=== PATIENT | female | born 1940 | race Caucasian/White ===

== ENCOUNTER 2016-12-17 11:06 | Inpatient (IN) | payer OTHER ==
[~2016-12-17] VITALS: Ht 170.2 cm; Wt 74.4 kg
--- NOTE | 2016-12-17 11:21 | NUR ---
MISA KATZ AT BEDSIDE FOR EVAL.
--- NOTE | 2016-12-17 11:21 | NUR ---
BIBA FROM WALK-IN CLINIC WITH C/O LOW 02 SATS. PT WITH COPD, ACTIVE SMOKER, RECENT COUGH/FEVER 100.3 AT HOME WITH +SICK CONTACTS (FLU/PNA). AT WALK-IN CLINIC AND ON ARRIVAL AT ER SATS 82-85 RA, MID 90S ON 3L, PT SPEAKING FULL SENTENCES BUT INSP/EXP WHEEZES--1 ALBUTEROL NEB AT WALK-IN AND 1 EN ROUTE.
--- NOTE | 2016-12-17 11:39 | ED INFLUENZA/URI COMPLAINT ---
History of Present Illness General Chief Complaint: Dyspnea (COPD, CHF, Other) Stated Complaint: BIBA FROM WALK-IN COPD/SOB/PNA ON CXR Source: patient, family, old records Exam Limitations: no limitations Vital Signs & Intake/Output Vital Signs & Intake/Output Vital Signs Date Time Temp Pulse Resp B/P Pulse O2 O2 Flow FiO2 Ox Delivery Rate 12/17 1809 97.3 90 18 132/60 93 Nasal 2.5L Cannula 12/17 1639 96 Nasal 2.5L Cannula 12/17 1304 99.8 89 18 120/56 96 Nasal 2.5L Cannula 12/17 1247 94 Nasal 2.5L Cannula 12/17 1211 96 Nasal 3.0L Cannula 12/17 1119 20 95 Nasal 3.0L Cannula 12/17 1118 98.3 91 20 134/62 82 Room Air Allergies Coded Allergies: No Known Allergies (12/17/16) Reconcile Medications No Known Home Medications Triage Note: BIBA FROM WALK-IN CLINIC WITH C/O LOW 02 SATS. PT WITH COPD, ACTIVE SMOKER, RECENT COUGH/FEVER 100.3 AT HOME WITH +SICK CONTACTS (FLU/PNA). AT WALK-IN CLINIC AND ON ARRIVAL AT ER SATS 82-85 RA, MID 90S ON 3L, PT SPEAKING FULL SENTENCES BUT INSP/EXP WHEEZES--1 ALBUTEROL NEB AT WALK-IN AND 1 EN ROUTE. Triage Nurses Notes Reviewed? yes HPI: 76-year-old female with COPD, positive smoker, non-O2 dependent, sent in the walk-in center, diagnosed with pneumonia there, had O2 sat of 88%. Over last 2 days she has had fever of 100.3 intermittently, cough, malaise. She denies any worsening shortness of breath but does complain of weakness and fatigue. 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 Upon arrival here her O2 sat was 88%, she received a nebulizer treatment at the urgent care and a chest x-ray, she also received a nebulized treatment of albuterol en route by EMS. She presents here without any complaints of feeling short of breath. She denies any chest pain or palpitations. I have reviewed the chest x-ray from the urgent care center which shows a possible left lower lobe pneumonia (STERLING BYNUM,BRUNO) Past History Medical History Any Pertinent Medical History? see below for history Respiratory: COPD, emphysema Surgical History Surgical History: non-contributory Psychosocial History What is your primary language Kiswahili Tobacco Use: Current Daily Use ETOH Use: occasional use Family History Hx Contributory? No (BRUNO SWANN) Review of Systems Review of Systems Constitutional: Reports: see HPI. EENTM: Reports: no symptoms. Respiratory: Reports: see HPI. Cardiovascular: Reports: no symptoms. GI: Reports: no symptoms. Genitourinary: Reports: no symptoms. Musculoskeletal: Reports: no symptoms. Skin: Reports: no symptoms. Neurological/Psychological: Reports: no symptoms. Hematologic/Endocrine: Reports: no symptoms. Immunologic/Allergic: Reports: no symptoms. All Other Systems: Reviewed and Negative (BRUNO SWANN) Physical Exam Physical Exam Ears, Nose, Throat: normal ENT inspection, moist mucous membrane, hearing grossly normal, Tympanic normal, pharynx normal, DRY MM Comments: Well-developed well-nourished person in no acute distress HEENT: Normal EENT exam, extraocular motion intact, no nystagmus. Pupils equally round and reactive to light. Nose is atraumatic. External auditory canal and Tympanic membranes clear. Pharynx normal. No swelling or edema. Neck: Supple, no lymphadenopathy, normal range of motion without pain or tenderness Back: Nontender, no CVA tenderness. Full range of motion Cardiovascular: Regular rate and rhythms no murmurs, normal JVP Respiratory: Chest nontender. Mild increased respiratory rate and effort. Bilaterally lungs have decreased breath sounds, positive wheezing inspiratory and expiratory, positive rhonchi throughout Abdomen: Soft, nontender nondistended, no appreciable organomegaly. Normal bowel sounds. No ascites Extremity: Trace bilateral lower extremity edema, no calf tenderness to palpation, normal and equal pulses. Neuro: Alert oriented x3, motor sensory normal, cranial nerves II through XII grossly intact. Skin: No appreciable rash on exposed skin, skin is warm and dry. Psych: Mood and affect is normal, memory and judgment is normal. Core Measures Severe Sepsis Present: No Septic Shock Present: No (BRUNO SWANN) Progress Differential Diagnosis: influenza, meningitis, neutropenia, otitis, pneumonia, pharyngitis, sinusitis Plan of Care: Orders Procedure Date/time Status Regular Diet 12/18 D Active XRY-CHEST XRAY, PA AND LATERAL 12/18 0800 Active XRY-CHEST XRAY, PA AND LATERAL 12/18 0600 Active CBC WITHOUT DIFFERENTIAL 12/18 0600 Active BASIC ELECTROLYTES PLUS BUN&CR 12/18 0600 Active Regular Diet 12/17 D Active Intake & Output 12/17 1551 Active LOWER RESPIRATORY CULTURE 12/17 1518 Active SPECIMEN TO BE OBTAINED 12/17 1518 Active STREP PNEUMO URINARY ANTIGEN 12/17 1517 Complete LEGIONELLA URINARY ANTIGEN 12/17 1517 Complete Pathway - chart 12/17 1514 Active Code Status 12/17 1514 Active LACTIC ACID 12/17 1426 Active VIRAL CULTURE 12/17 1331 Active Patient Data 12/17 1330 Active RAPID VIRAL INFLUENZA A 12/17 1325 Complete OXYGEN SETUP (GEN) 12/17 1316 Active Saline Lock 12/17 1316 Active Admit to inpatient 12/17 1316 Active Vital Signs 12/17 1316 Active Activity/Ambulation 12/17 1316 Active Code Status 12/17 1316 Complete Saline Lock 12/17 1126 Active BLOOD CULTURE 12/17 1126 Active LACTIC ACID 12/17 1126 Complete COMPREHENSIVE METABOLIC PANEL 12/17 1126 Complete CBC WITHOUT DIFFERENTIAL 12/17 1126 Complete EKG 12/17 1126 Active TRC EVALUATION (GEN) 12/17 UNK Active House Staff 12/17 UNK Active VTE Mechanical Prophylaxis 12/17 UNK Active Current Medications Sig/Duy Start time Last Medication Dose Stop Time Status Admin Enoxaparin Sodium 40 MG DAILY 12/18 1000 AC (Lovenox) Methylprednisolone 40 MG Q8 12/18 0600 AC (Solumedrol) Oseltamivir Phosphate 75 MG BID 12/17 2200 AC (Tamiflu 75MG) 12/22 1001 Oseltamivir Phosphate 75 MG BID 12/17 2200 AC (Tamiflu 75MG) 12/21 2159 Albuterol Sulfate 3 ML Q4H PRN 12/17 1830 AC (Proventil) Acetaminophen 650 MG Q6P PRN 12/17 1515 AC (Tylenol) Laboratory Tests 12/17/16 1331: Virus Culture Pending 12/17/16 1147: Anion Gap 12, Estimated GFR > 60, BUN/Creatinine Ratio 28.9 H, Glucose 107 H, Lactic Acid 0.9, Calcium 8.6, Total Bilirubin 0.5, AST 29, ALT 36, Alkaline Phosphatase 64, Total Protein 6.4, Albumin 3.7, Globulin 2.7, Albumin/Globulin Ratio 1.4, CBC w Diff NO MAN DIFF REQ, RBC 5.05, MCV 89.4, MCH 29.7, RDW 13.6, MPV 8.0, Gran % 82.9 H, Lymphocytes % 8.4 L, Monocytes % 8.3, Eosinophils % 0.1, Basophils % 0.3, Absolute Granulocytes 5.2, Absolute Lymphocytes 0.5 L, Absolute Monocytes 0.5, Absolute Eosinophils 0, Absolute Basophils 0, PUBS MCHC 33.2 Microbiology 12/17 1615 URINE ROUT: Legionella Antigen - COMP 12/17 161 URINE ROUT: Streptococcus pneumoniae Antigen (M - COMP 12/17 1518 LOWER RESP: Respiratory Culture - COLB 12/17 1518 LOWER RESP: Gram Stain - COLB 12/17 1200 BLOOD: Blood Culture - RECD 12/17 1147 BLOOD: Blood Culture - RECD Initial ED EKG: NSR, rate (85), no ST T wave changes Rhythm Strip: normal sinus rhythm Comments: Placed on supplemental oxygen for an O2 sat of 82% on room air. O2 sat mid 90s on 4 L via nasal cannula. She was given a DuoNeb treatment, IV SOLU- Medrol 125 mg, Rocephin and Zithromax IV.. laboratory values are largely unremarkable, patient ambulated off oxygen and she desatted to 73% and became short of breath. She will require admission after receiving 3 nebulizer treatments and IV steroids she is an unsafe discharge due to hypoxia. She understands and agrees with plan. Discussed with Dr. Hernandez Patient influenza A positive, we'll start with Tamiflu (BRUNO SAWNN) Departure Departure Disposition: STILL A PATIENT Condition: Stable Clinical Impression Primary Impression: COPD exacerbation Secondary Impressions: Hypoxia, Influenza A Referrals: LAUREEN ERICKSON,Razia CRENSHAW (PCP/Family) Departure Forms: Customer Survey General Discharge Information Prescriptions: Current Visit Scripts No Known Home Medications Admission Note Spoke With: BEAR SCOTT MD Documentation of Exam: Documentation of any treatments & extenuating circumstances including Concerns Regarding Discharge (functional status, medication knowledge or non-compliance, living conditions, etc.) that warrant an admission rather than observation: Patient with hypoxia and COPD exacerbation requires IV Solu-Medrol, nebulizer treatments, monitoring for worsening hypoxia, she is a poor candidate for outpatient discharge due to O2 sat to 73% after treatments (BRUNO SWANN) PA/SCENIC ARTIST Co-Sign Statement Statement: ED Attending supervision documentation- x I saw and evaluated the patient. I have also reviewed all the pertinent lab results and diagnostic results. I agree with the findings and the plan of care as documented in the PA's/SCENIC ARTIST's documentation. [] I have reviewed the ED Record and agree with the PA's/SCENIC ARTIST's documentation. [] Additions or exceptions (if any) to the PAs/SCENIC ARTIST's note and plan are summarized below: [] (MYRNA ERICKSON,ALVINO)
--- NOTE | 2016-12-17 11:53 | NUR ---
BLOOD AND 1ST SET OF CULUTRES SENT TO LAB. SST,LAV,BLUE,[place].
[2016-12-17 12:04] LABS: ABSOLUTE BASOPHIL COUNT 0 /CUMM (0.0-0.2); ABSOLUTE EOSINOPHIL COUNT 0 /CUMM (0.0-0.7); ABSOLUTE GRANULOCYTE CT 5.2 /CUMM (1.4-6.5); ABSOLUTE LYMPH COUNT 0.5 /CUMM (1.2-3.4); ABSOLUTE MONOCYTE COUNT 0.5 /CUMM (0.10-0.60); BASOPHIL % 0.3 % (0.0-2.0); EOSINOPHIL % 0.1 % (0-5); GRANULOCYTE % 82.9 % (42.2-75.2); HEMATOCRIT 45.1 % (37-47); MEAN CORPUSCULAR HGB 29.7 PG (27.0-31.0); MEAN CORPUSCULAR HGB CONC 33.2 G/DL (33.0-37.0); MEAN CORPUSCULAR VOLUME 89.4 FL (81.0-99.0); PLATELET COUNT 170 /CUMM (130-400); RBC DISTRIBUTION WIDTH 13.6 % (11.5-14.5); RED BLOOD CELL CT 5.05 /CUMM (4.20-5.40); WHITE BLOOD CELL COUNT 6.3 /CUMM (4.8-10.8)
--- NOTE | 2016-12-17 12:10 | NUR ---
IV EST, MEDICATED PER EMAR, PT CONTS CONVERSING WITH FAMILY WITHOUT APPEARING SOB, SATS MID-HI 90S ON 3L NC, OCC NONPRODUCTIVE COUGH.
--- NOTE | 2016-12-17 12:21 | NUR ---
BOLA CHI CELL [phone]
--- NOTE | 2016-12-17 12:43 | NUR ---
RT AT BEDSIDE FOR THAO
--- NOTE | 2016-12-17 13:13 | NUR ---
AMBULATED 50 FEET ON RA, AMBULATORY SAT 73, PT STILL SPEAKING FULL SENTENCES AND WALKING WITHOUT DIFFICULTY. RETURNED TO STRETCHER, SATS SLOWLY IMPROVED TO 93 ON 3L. MISA KATZ AT BEDSIDE.
--- NOTE | 2016-12-17 13:32 | NUR ---
FLU SWAB SENT, LUNCH ORDERED
--- NOTE | 2016-12-17 14:01 | NUR ---
CRITICAL TEST RESULTS [id number] CHRISTOPHER ORTA 76 F TESTS AND RESULTS: INFLUENZA A Results received and read back by: ANABELA DRAPER Results received date and time: 12/17/16 1401 The following provider was notified of the results, and read the results back: MISA KATZ Notified date and time: 12/17/16 at 1400
--- NOTE | 2016-12-17 14:02 | NUR ---
PLACED ON DROPLET PRECAUTIONS DUE TO POSITIVE FLU SWAB.
--- NOTE | 2016-12-17 14:21 | NUR ---
HOUSE STAFF AT BEDSIDE
--- NOTE | 2016-12-17 15:35 | History & Physical ---
ANTHONY GEORGE MD 12/17/16 1535: General Information and HPI MD Statement: I have seen and personally examined CHRISTOPHER ORTA and documented this H&P. The patient is a 76 year old F who presented with a patient stated chief complaint of [cough and dyspnea]. Source of Information: patient Exam Limitations: no limitations History of Present Illness: Ms. 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 Ms. Orta was noted to be in close contact with this child's secretions. Ms. Orta then noticed that she did not feel well, with lethargy, shortness of breath and cough productive of minimal white fluid. She attempted to schedule an appointment with her PCP but they were not able to fit her into the schedule so she went to an Urgent Care. She had a CXR done at Urgent Care which was suggestive of a right lower lobe pneumonia. She was also noted to drop her oxygen saturations to 82% on room air while ambulating and was therefore sent to the [place] ED. Of note, patient did have her flu vaccination this year but has not received a pneumococcal PNA vaccination. Past surgical history is significant for hysterectomy. Social history is significant as mentioned above for smoking 1-2 ppd for >20 years. She denies alcohol or illicit drug use. Allergies/Medications Allergies: Coded Allergies: No Known Allergies (12/17/16) Home Med list No Known Home Medications Compliance With Home Meds: GOOD Past History Travel History Traveled to [place] past 21 day No Medical History Respiratory: COPD, emphysema Surgical History Surgical History: hysterectomy Past Family/Social History Psychosocial History Where do you live? Home Who Do You Live With? 3 children Primary Language: Slovak Smoking Status: Current Everyday Smoker ETOH Use: occasional use Illicit Drug Use: denies illicit drug use Living Will? no Functional Ability ADLs Independent: dressing, eating, toileting, bathing. Ambulation: independent IADLs Independent: shopping, housework, finances, food prep, telephone, transportation , medication admin. Review of Systems Review of Systems Constitutional: Denies: chills, diaphoresis, fever, malaise, weakness. EENTM: Denies: blurred vision, visual changes, hearing changes, nasal congestion, throat pain. Cardiovascular: Denies: chest pain, palpitations, peripheral edema. Respiratory: Reports: cough, short of breath. Denies: hemoptysis, stridor, wheezing. GI: Denies: abdominal pain, bloating, constipation, diarrhea. Genitourinary: Denies: dysuria, frequency, hematuria. Musculoskeletal: Denies: back pain. Skin: Denies: change in skin color, change in hair/nails. Neurological/Psychological: Denies: confusion, headache, numbness. Hematologic/Endocrine: Denies: bruising, bleeding. Immunologic/Allergic: Denies: splenectomy. All Other Systems: Reviewed and Negative Exam & Diagnostic Data Last 24 Hrs of Vital Signs/I&O Vital Signs Date Time Temp Pulse Resp B/P Pulse O2 O2 Flow FiO2 Ox Delivery Rate 12/17 1809 97.3 90 18 132/60 93 Nasal 2.5L Cannula 12/17 1639 96 Nasal 2.5L Cannula 12/17 1304 99.8 89 18 120/56 96 Nasal 2.5L Cannula 12/17 1247 94 Nasal 2.5L Cannula 12/17 1211 96 Nasal 3.0L Cannula 12/17 1119 20 95 Nasal 3.0L Cannula 12/17 1118 98.3 91 20 134/62 82 Room Air Intake & Output 12/17 1600 12/17 0800 12/17 0000 Intake Total Output Total Balance Patient 166 lb Weight Physical Exam General Appearance Alert, Oriented X3, Cooperative, Mild Distress Skin No Rashes, No Significant Lesion HEENT Atraumatic, PERRLA, Mucous Membr. moist/pink Neck Supple, No JVD Lymphatic Cervical nl Cardiovascular Regular Rate, Normal S1, Normal S2 Lungs Decreased breath sounds right lung base, wheezing appreciated Abdomen Normal Bowel Sounds, Soft, No Tenderness, No Hepatospenomegaly Neurological Normal Speech, Strength at 5/5 X4 Ext, Normal Tone Extremities No Clubbing, No Cyanosis, 2+ bilateral lower extremity edema Vascular Pulses Symmetrical Last 24 Hrs of Labs/Wyatt: Laboratory Tests 12/17/16 1331: Virus Culture Pending 12/17/16 1147: Anion Gap 12, Estimated GFR > 60, BUN/Creatinine Ratio 28.9 H, Glucose 107 H, Lactic Acid 0.9, Calcium 8.6, Total Bilirubin 0.5, AST 29, ALT 36, Alkaline Phosphatase 64, Total Protein 6.4, Albumin 3.7, Globulin 2.7, Albumin/Globulin Ratio 1.4, CBC w Diff NO MAN DIFF REQ, RBC 5.05, MCV 89.4, MCH 29.7, RDW 13.6, MPV 8.0, Gran % 82.9 H, Lymphocytes % 8.4 L, Monocytes % 8.3, Eosinophils % 0.1, Basophils % 0.3, Absolute Granulocytes 5.2, Absolute Lymphocytes 0.5 L, Absolute Monocytes 0.5, Absolute Eosinophils 0, Absolute Basophils 0, PUBS MCHC 33.2 Microbiology 12/17 161 URINE ROUT: Legionella Antigen - COMP 12/17 161 URINE ROUT: Streptococcus pneumoniae Antigen (M - COMP 12/17 1518 LOWER RESP: Respiratory Culture - COLB 12/17 1518 LOWER RESP: Gram Stain - COLB 12/17 1200 BLOOD: Blood Culture - RECD 12/17 1147 BLOOD: Blood Culture - RECD Diagnostic Data EKG Results NSR HR 83 bpm, QTC 442 Assessment/Plan Assessment: Ms. Orta is a pleasant 76 year old female with PMH COPD not on home O2 and active smoking for greater than 20 years who presents with chief complaint of 2- 3 days of dyspnea, mild cough with slight white sputum production and generalized malaise. 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 Associated symptoms include fever of 100.3. In the ED: Vital signs showed T 99.8, HR 89, RR 18, BP 120/56 and O2 saturation of 82% on room air which increased to 95% on 3L NC. Labs showed a normal CBC ( specifically WBC 6.3), BEP with abnormal Cl of 96, BUN 26 and glucose 107. Lactic acid normal at 0.9. Flu test done in the ED was positive. Patient is admitted to the general medicine floor and the following is the management: 1. Acute hypoxic respiratory failure 2/2 COPD exacerbation * Provide supplemental O2 to keep O2 saturations >92% * Continue albuterol bronchodilater every 4 hours, TRC nebs ordered * IV solumedrol 40 mg Q8H * Will repeat CXR, PA and lateral, tomorrow for follow up on outpatient CXR done at urgent care * Blood cultures x 2, urine legionella, strep, LRC pending, follow results 2. Influenza * Rapid flu negative at urgent care, positive in our ED * Patient received tamiflu in the ED, will continue 75 mg PO BID tamiflu for 5 days * Supportive management * Continue droplet precautions 3. Nicotine abuse * Patient was counseled on tobacco cessation * Nicotine patch daily FULL CODE DVTP: Mechanical & Pharm Regular diet Mild pain pathways As Ranked By This Provider Problem List: 1. COPD exacerbation 2. Hypoxia 3. Influenza A Core Measures/Miscellaneous Acute Coronary Syndrome ACS Diagnosis: No Cerebrovascular Accident CVA/TIA Diagnosis: No Congestive Heart Failure CHF Diagnosis: No Venous Thromboembolism VTE Risk Factors: Acute medical illness, Age > 40, Obesity, Smoking VTE Prophylaxis Ordered Inpt: Mech & Pharm No Mech VTE prophylaxis d/t: No contraindications No VTE Pharm Prophylaxis d/t: No contraindications VTE Diagnosis: No VTE Type: NONE VTE Confirmed by (Test): NONE Severe Sepsis Severe Sepsis Present: No Septic Shock Septic Shock Present: No Miscellaneous Documentation Attending Case Discussed With: WINTER LEIVA M.D Primary Care Physician: Razia GARDUNO MD [place] Patient sees these Specialists None. Level of Patient Care: General Medicine [facility] FUNK 12/17/16 1538: Resident Review Statement Resident Statement: reviewed EMR data (avail), discussed with nursing, discussed with case mgmt, reviewed images, amended to note Other Findings: 76-year-old lady with past medical history of COPD, active smoker for more than 20 years with 1-2 packs of cigarettes a day, came with chief complaint of dyspnea, cough, fever of 100.3 for about 2 or 3 days. She has been taking care of special-needs was also admitted yesterday for influenza and pneumonia. Patient reported feeling a little bit rundown on Friday and started having cough wiht hwilte sputum and fever of 100.3 on Friday. Patient tried to contact the PCP today but that appointment was on so she went to urgent care and the chest x-ray there showed possible right-sided pneumonia, she also desaturated on room air to 82% and she was BIBA to [place] ED. At the definitive she also desaturated with 73% on exertion on room and treated with nebulizers and IV Solu-Medrol and 1 dose of IV ceftriaxone and azithromycin. vital signs on admission BP 120/66 month temperature 99.8, pulse rate 89, O2 saturation more than 92% on 2.5 Nasal cannula. Skin No Rashes, No Breakdown, No Significant Lesion HEENT Atraumatic, PERRLA, EOMI Neck Supple, No JVD, No thryomegaly Lymphatic Cervical nl Cardiovascular Regular Rate, Normal S1, Normal S2,2/6 systolic murmur Lungs reduced breath sounds on the right lung, exp wheezing on the left lung Abdomen Normal Bowel Sounds, Soft, No Tenderness, No Hepatospenomegaly, No Masses Neurological Normal Gait, Normal Speech, Strength at 5/5 X4 Ext, Sensation Intact Extremities No Clubbing, No Cyanosis, 2+ bilateral leg edema CBC, BEP was unremarkable, rapid flu was positive EKG showed, sinus rhythm, QTC 442, MS 83, possible mild ST depression in V6 Assessment and plan COPD exacerbation/rule out pneumonia/positive flu test * Patient got IV ceftriaxone and azithromycin in the [facility] chest chest x-ray tomorrow to see if patient has pneumonia * Blood cultures 2, urine Legionella and strep, sputum culture * Smoking cessation was reinforced * Admit the patient to general floor * Keep O2 saturation over 92% * TRC nebs * IV Solu-Medrol 40 mg every 8 hours * IV azithromycin 500 mg daily for 3-5 days DVT prophylaxis is mechanical and Lovenox, full code, regular diet, Tylenol for pain CALI ERICKSON,VIRIDIANAChris 12/17/16 1721: Attending MD Review Statement Attending Statement Attending MD Statement: examined this patient, discuss w/resident/PA/GREENS KEEPER, agreed w/resident/PA/GREENS KEEPER, reviewed EMR data (avail), discussed with nursing, amended to note Attending Assessment/Plan: Patient seen and examined. 76-year-old chronic smoker referred from the urgent care center to the emergency room for evaluation of complaints of respiratory symptoms. She was found to be hypoxic at the facility. Chest x-ray at that time was suggestive of left lower lobe pneumonia. On arrival in the emergency room she was found afebrile hemodynamically stable however her rapid flu test was positive. On examination she had diffuse rhonchi. She admits to wheezing on- off at baseline. Problems: 1. Acute hypoxic respiratory failure 2. COPD exacerbation 3. Influenza pneumonia Plan: -Admit to the inpatient general medical service. -Bronchodilator therapy every 4 hours. -Systemic steroid therapy with Solu-Medrol 40 mg IV every 8 hours -Reinforce the need for smoking cessation. Place nicotine patch. -Outpatient referral to pulmonology service. -Therapy for influenza with Tamiflu. Maintain droplet precautions until afebrile for 24 hours was 7 days of therapy. -Repeat chest x-ray PA lateral tomorrow.
--- NOTE | 2016-12-17 16:23 | NUR ---
AMBULATORY TO/FROM BATHROOM, URINE TRIO SENT WITH EXTRA CLEAR TUBE. PT VOICING NO COMPLAINTS, AWAITING BED ASSIGNMENT.
--- NOTE | 2016-12-17 16:39 | NUR ---
PT GOING TO ROOM 232-1.
--- NOTE | 2016-12-17 16:42 | NUR ---
PER FLOOR, BED IS CURRENTLY OCCUPIED.
--- NOTE | 2016-12-17 17:12 | Admission Certification ---
Admission Certification Certification Statement - As attending physician, I certify that at the time of - admission, based on clinical presentation, severity of - symptoms, need for further diagnostic testing and - therapeutic interventions, and risk of adverse outcomes - without in-hospital treatment, in my clinical assessment, - this patient requires an acute hospital stay for a minimum - of two nights or longer. I have also considered psychsocial - factors such as support system, advanced age, financial - issues, cognitive issues, and failed out-patient treatments, - past re-admission history, safety of patient, and lack of - compliance as applicable. Specific rationale supporting this admission is: Patient is admitted to the inpatient medical service for management of her acute hypoxic respiratory failure.
--- NOTE | 2016-12-17 18:33 | NUR ---
PT PROVIDED WITH DINNER MENU. CALL TO FLOOR TO GIVE REPORT, ROOM IS READY, RN TO CALL BACK.
--- NOTE | 2016-12-17 18:39 | NUR ---
DINNER TRAY ORDERED
--- NOTE | 2016-12-17 19:07 | NUR ---
REPORT CALLED TO JALEN ON 2NA, TRANSPORT CALLED
[2016-12-17 22:14] VITALS: BP 172/60
[2016-12-18 04:53] VITALS: BP 160/70
--- NOTE | 2016-12-18 06:42 | PN- Housestaff ---
See Addendum Subjective Follow-up For: Influenza COPD exacerbation Subjective: Patient seen and examined at bedside this AM. She reports she continuous to have wheezing and chest congestion, for which she is requesting mucinex. She denies fever, chills, chest pain, palpitations, hemoptysis or abdominal pain. Review of Systems Constitutional: Denies: chills, fever, malaise. EENTM: Reports: nasal congestion. Denies: blurred vision, visual changes, hearing changes. Cardiovascular: Denies: chest pain, palpitations. Respiratory: Reports: cough, short of breath, sputum production, wheezing. Gastrointestinal: Denies: abdominal pain, bloating, constipation, diarrhea. Genitourinary: Denies: dysuria, frequency, hematuria. Musculoskeletal: Denies: back pain. Skin: Denies: change in skin color, change in hair/nails. Neurological/Psychological: Denies: confusion, headache, numbness. Hematologic/Endocrine: Denies: bruising, bleeding. Objective Last 24 Hrs of Vital Signs/I&O Vital Signs Date Time Temp Pulse Resp B/P Pulse O2 O2 Flow FiO2 Ox Delivery Rate 12/18 1107 Nasal 3.0L Cannula 12/18 0800 91 Nasal 3.0L Cannula 12/18 0657 90 Nasal 2.0L Cannula 12/18 0453 98.7 113 22 160/70 90 Nasal 2.0L Cannula 12/18 0000 Nasal 2.5L Cannula 12/17 2339 90 Nasal 2.5L Cannula 12/17 2214 98.2 103 18 172/60 90 Nasal Cannula 12/17 1809 97.3 90 18 132/60 93 Nasal 2.5L Cannula 12/17 1639 96 Nasal 2.5L Cannula Intake & Output 12/18 1600 12/18 0800 12/18 0000 Intake Total 1000 Output Total 300 Balance 700 Intake, IV 1000 Output, Urine 300 Patient 164 lb Weight Physical Exam General Appearance: Alert, Oriented X3, Cooperative, No Acute Distress Other Physical Findings: Skin No Rashes, No Significant Lesion HEENT Atraumatic, PERRLA, Mucous Membr. moist/pink Neck Supple, No JVD Lymphatic Cervical nl Cardiovascular Regular Rate, Normal S1, Normal S2 Lungs Decreased breath sounds right lung base, wheezing appreciated Abdomen Normal Bowel Sounds, Soft, No Tenderness, No Hepatospenomegaly Neurological Normal Speech, Strength at 5/5 X4 Ext, Normal Tone Extremities No Clubbing, No Cyanosis, 2+ bilateral lower extremity edema Vascular Pulses Symmetrical Current Medications: Current Medications Sig/Duy Start time Last Medication Dose Route Stop Time Status Admin Acetaminophen 650 MG .STK-MED ONE 12/18 0442 DC PO 12/18 0443 Acetaminophen 650 MG Q6P PRN 12/17 1515 AC 12/18 PO 0450 Albuterol Sulfate 3 ML Q4H PRN 12/17 1830 AC 12/18 INH 1105 Azithromycin 500 MG DAILY 12/18 1000 AC 12/18 Dextrose/Water 250 ML IV 12/21 1059 1033 Enoxaparin Sodium 40 MG DAILY 12/18 1000 AC 12/18 SC 1032 Guaifenesin 600 MG Q12 12/18 1415 AC PO Ipratropium Andrews 2.5 ML Q4P PRN 12/17 1915 AC 12/18 INH 1105 Methylprednisolone 40 MG Q8 12/18 0600 AC 12/18 IV 1436 Nicotine 0 .STK-MED ONE 12/17 1835 DC TOP Nicotine 14 MG DAILY 12/17 1822 AC 12/18 TOP 1032 Oseltamivir Phosphate 75 MG BID 12/17 2200 AC 12/18 PO 12/22 1001 1032 Oseltamivir Phosphate 75 MG BID 12/17 2200 CAN PO 12/21 2159 Sodium Chloride 1,000 ML ONCE ONE 12/17 1130 DC 12/17 IV 12/17 1809 1156 Last 24 Hrs of Lab/Wyatt Results Last 24 Hrs of Labs/Mics: Laboratory Tests 12/18/16 0615: Anion Gap 5, Estimated GFR > 60, BUN/Creatinine Ratio 36.7 H, Vgc-C-Jbolyaiexnd Pept 498 H, 25-OH Vitamin D Total 20.0 L, CBC w Diff MAN DIFF ORDERED, RBC 4.82, MCV 91.2, MCH 29.8, RDW 14.0, MPV 8.6, Gran % 87.9 H, Lymphocytes % 6.5 L, Monocytes % 5.6, Eosinophils % 0, Basophils % 0 L, Absolute Granulocytes 6.7 H, Segmented Neutrophils 71, Band Neutrophils 18 H, Absolute Lymphocytes 0.5 L, Lymphocytes 5 L, Monocytes 6, Absolute Monocytes 0.4, Absolute Eosinophils 0 , Absolute Basophils 0, Platelet Estimate VERIFIED BY SMEAR, Stomatocytes 1+, PUBS MCHC 32.6 L Microbiology 12/17 1615 URINE ROUT: Legionella Antigen - COMP 12/17 161 URINE ROUT: Streptococcus pneumoniae Antigen (M - COMP 12/17 1518 LOWER RESP: Respiratory Culture - CAN Cancelled: SPECIMEN NOT RECEIVED IN LABORATORY 12/17 1518 LOWER RESP: Gram Stain - CAN Cancelled: SPECIMEN NOT RECEIVED IN LABORATORY Orders Radiology Findings: EXAMINATION: XR CHEST CLINICAL INFORMATION: Cough, productive of sputum. Fever. Shortness of breath. COMPARISON: None. TECHNIQUE: PA and lateral views of the chest were obtained. FINDINGS: The cardiomediastinal silhouette is within normal limits in size. Calcification of the aortic arch is seen. Lungs bilaterally are symmetrically hyperinflated with flattening of the hemidiaphragms and increase in retrosternal airspace, consistent with obstructive lung disease. Slight diffuse thickening of the central airways is seen. No focal consolidation, effusion or pneumothorax is present. There is a mild dorsal kyphosis with mild compression deformity of the T9 vertebral body, likely long-standing with associated vertebral endplate spurring. Diffuse osteopenia is seen. IMPRESSION: 1. Findings are consistent with obstructive lung disease. No acute superimposed focal process is noted. 2. Osteopenia with dorsal kyphosis and mild compression deformity of T9, likely long-standing. Assessment/Plan Assessment: Ms. Talbert is a pleasant 76 year old female with PMH COPD not on home O2 and active smoking for greater than 20 years who presents with chief complaint of 2- 3 days of dyspnea, mild cough with slight white sputum production and generalized malaise. 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 Associated symptoms include fever of 100.3. In the ED: Vital signs showed T 99.8, HR 89, RR 18, BP 120/56 and O2 saturation of 82% on room air which increased to 95% on 3L NC. Labs showed a normal CBC ( specifically WBC 6.3), BEP with abnormal Cl of 96, BUN 26 and glucose 107. Lactic acid normal at 0.9. Flu test done in the ED was positive. Patient is admitted to the general medicine floor and the following is the management: 1. Acute hypoxic respiratory failure 2/2 COPD exacerbation * Provide supplemental O2 to keep O2 saturations >92% * Continue albuterol bronchodilater every 4 hours, TRC nebs ordered * IV solumedrol 40 mg Q8H, will taper to Q12h tomorrow and consideration for starting PO prednisone * Repeat CXR done this AM shows obstructive lung disease, no acute focal process superimposed * Of note, patient has remained afebrile but remains on 3 L NC with saturations in the low 90's, will have to taper O2 prior to patient's discharge * Blood cultures x 2 show NGTD, urine legionella/strep negative, LRC cancelled due to not enough specimin, will follow rest of blood culture results * Of note, patient will require outpatient follow up with pulmonology service to establish care and provide continued management of COPD 2. Influenza * Rapid flu negative at urgent care, positive in our ED * No evidence of fever since admission to the floor * Patient received tamiflu in the ED, will continue 75 mg PO BID tamiflu for 5 days * Supportive management * Will discontinue droplet precautions once patient is afebrile for 24 h 3. Nicotine abuse * Patient was counseled on tobacco cessation * Nicotine patch daily FULL CODE DVTP: Mechanical & Pharm Regular diet Mild pain pathways Problem List: 1. COPD exacerbation 2. Hypoxia 3. Influenza A Pain Ratin Pain Location: n/a Pain Goal: Remain pain free Pain Plan: Mild pain pathway. Tomorrow's Labs & Rationales: None.
[2016-12-18 08:00] LABS: ABSOLUTE BASOPHIL COUNT 0 /CUMM (0.0-0.2); ABSOLUTE EOSINOPHIL COUNT 0 /CUMM (0.0-0.7); ABSOLUTE GRANULOCYTE CT 6.7 /CUMM (1.4-6.5); ABSOLUTE LYMPH COUNT 0.5 /CUMM (1.2-3.4); ABSOLUTE MONOCYTE COUNT 0.4 /CUMM (0.10-0.60); BASOPHIL % 0 % (0.0-2.0); EOSINOPHIL % 0 % (0-5); GRANULOCYTE % 87.9 % (42.2-75.2); HEMATOCRIT 43.9 % (37-47); MEAN CORPUSCULAR HGB 29.8 PG (27.0-31.0); MEAN CORPUSCULAR HGB CONC 32.6 G/DL (33.0-37.0); MEAN CORPUSCULAR VOLUME 91.2 FL (81.0-99.0); MEAN PLATELET VOLUME 8.6 FL (7.4-10.4); PLATELET COUNT 155 /CUMM (130-400); RED BLOOD CELL CT 4.82 /CUMM (4.20-5.40); WHITE BLOOD CELL COUNT 7.6 /CUMM (4.8-10.8)
--- NOTE | 2016-12-18 10:53 | RADIOLOGY REPORT ---
EXAMINATION: XR CHEST CLINICAL INFORMATION: Cough, productive of sputum. Fever. Shortness of breath. COMPARISON: None. TECHNIQUE: PA and lateral views of the chest were obtained. FINDINGS: The cardiomediastinal silhouette is within normal limits in size. Calcification of the aortic arch is seen. Lungs bilaterally are symmetrically hyperinflated with flattening of the hemidiaphragms and increase in retrosternal airspace, consistent with obstructive lung disease. Slight diffuse thickening of the central airways is seen. No focal consolidation, effusion or pneumothorax is present. There is a mild dorsal kyphosis with mild compression deformity of the T9 vertebral body, likely long-standing with associated vertebral endplate spurring. Diffuse osteopenia is seen. IMPRESSION: 1. Findings are consistent with obstructive lung disease. No acute superimposed focal process is noted. 2. Osteopenia with dorsal kyphosis and mild compression deformity of T9, likely long-standing.
[2016-12-18 15:28] VITALS: BP 120/60
--- NOTE | 2016-12-18 19:27 | Patient Discharge Instructions ---
Discharge Instructions General Discharge Information You were seen/treated for: COPD exacerbation Influenza (Flu) Special Instructions: Please follow up with Dr. Tang within 7 days of discharge. Please schedule an appointment with Dr. Cole for close management of your COPD. Please discuss need for a formal spirometry examination. Please take all medicaitons as directed. You may take your mucinex as needed for congestion. Diet Recommended Diet: Heart Healthy Activity Activity Self Limited: Yes Acute Coronary Syndrome Inclusion Criteria At DC or during hospital stay patient has or had the following: ACS DIAGNOSIS No Discharge Core Measures Meds if any: Prescribed or Continued at Discharge Meds if any: NOT Prescribed or Continued at Discharge Congestive Heart Failure Inclusion Criteria At DC or during hospital stay patient has or had the following: CHF DIAGNOSIS No Discharge Core Measures Meds if any: Prescribed or Continued at Discharge Meds if any: NOT Prescribed or Continued at Discharge Cerebrovascular accident Inclusion Criteria At DC or during hospital stay patient has or had the following: CVA/TIA Diagnosis No Discharge Core Measures Meds if any: Prescribed or Continued at Discharge Meds if any: NOT Prescribed or Continued at Discharge Venous thromboembolism Inclusion Criteria VTE Diagnosis No VTE Type NONE VTE Confirmed by (Test) NONE Discharge Core Measures - Per Current guidelines, there needs to be overlap - treatment for the first 5 days of Warfarin therapy. - If discharged on Warfarin prior to 5 days of - overlap therapy, the patient will need to be - assessed for post discharge needs including - *Post discharge parental anticoagulation - *Warfarin and/or parental anticoagulation education - *Follow up date to check INR post discharge At least 5 days overlap therapy as Inpatient No Meds if any: Prescribed or Continued at Discharge Note: Overlap Therapy is Warfarin and Anticoagulant Meds if any: NOT Prescribed or Continued at Discharge
[2016-12-18] MEDS ORDERED: VITAMIN D3400 UNI1 PO (19:41)
[2016-12-18] MEDS ORDERED: PROAIR HFA8.5 GM INH (19:41)
[2016-12-18] MEDS ORDERED: TAMIFLU75 M1 PO (19:41)
[2016-12-18] MEDS ORDERED: PREDNISONE10 M2 PO (19:41)
[2016-12-18 23:13] VITALS: BP 138/58
[2016-12-19 06:18] VITALS: BP 100/60
--- NOTE | 2016-12-19 06:51 | PN- Housestaff ---
See Addendum Subjective Follow-up For: COPD exacerbation Influenza Subjective: Patient seen and examined at bedside this AM. She reported poor sleep due to intermittent hallway noise. She also reports congestion and inability to bring up sputum. She also reports mild malaise. She denies fever, chills, chest pain, palpitations, weakness. Review of Systems Constitutional: Reports: malaise. Denies: chills, fever. EENTM: Reports: nasal congestion. Denies: visual changes, hearing changes, throat pain. Cardiovascular: Denies: chest pain, palpitations. Respiratory: Reports: cough, short of breath, wheezing. Denies: sputum production. Gastrointestinal: Denies: abdominal pain, bloating, constipation, diarrhea. Genitourinary: Denies: dysuria, frequency. Musculoskeletal: Denies: back pain, joint pain. Skin: Denies: rash. Neurological/Psychological: Denies: headache, numbness. Hematologic/Endocrine: Denies: bruising, bleeding. Immunologic/Allergic: Denies: splenectomy. Objective Last 24 Hrs of Vital Signs/I&O Vital Signs Date Time Temp Pulse Resp B/P Pulse O2 O2 Flow FiO2 Ox Delivery Rate 12/19 0847 94 Nasal 3.0L Cannula 12/19 0618 98.1 81 20 100/60 90 Nasal 3.0L Cannula 12/18 2313 97.8 84 20 138/58 94 Nasal 3.0L Cannula 12/18 2125 94 Nasal 3.0L Cannula 12/18 1600 Nasal 3.0L Cannula 12/18 1528 99.7 73 22 120/60 96 12/18 1107 Nasal 3.0L Cannula Intake & Output 12/19 1600 12/19 0800 12/19 0000 Intake Total 630 Output Total Balance 630 Intake, IV 30 Intake, Oral 600 Physical Exam General Appearance: Alert, Oriented X3, Cooperative, No Acute Distress Other Physical Findings: Skin No Rashes, No Significant Lesion HEENT Atraumatic, PERRLA, Mucous Membr. moist/pink Neck Supple, No JVD Lymphatic Cervical nl Cardiovascular Regular Rate, Normal S1, Normal S2 Lungs Decreased breath sounds right lung base, wheezing appreciated Abdomen Normal Bowel Sounds, Soft, No Tenderness, No Hepatospenomegaly Neurological Normal Speech, Strength at 5/5 X4 Ext, Normal Tone Extremities No Clubbing, No Cyanosis, 2+ bilateral lower extremity edema Vascular Pulses Symmetrical Current Medications: Current Medications Sig/Duy Start time Last Medication Dose Route Stop Time Status Admin Acetaminophen 650 MG Q6P PRN 12/17 1515 AC 12/18 PO 0450 Albuterol Sulfate 3 ML EVERY 4 HRS/AWAKE 12/19 0800 AC 12/19 INH 0844 Albuterol Sulfate 3 ML Q4H PRN 12/17 1830 DC 12/18 INH 1105 Azithromycin 500 MG DAILY 12/18 1000 AC 12/19 Dextrose/Water 250 ML IV 12/21 1059 1008 Cholecalciferol 400 IU DAILY 12/19 1000 AC 12/19 PO 1007 Enoxaparin Sodium 40 MG DAILY 12/18 1000 AC 12/19 SC 1008 Guaifenesin 600 MG Q12 12/18 1415 AC 12/19 PO 1007 Ipratropium Dane 2.5 ML EVERY 4 HRS/AWAKE 12/19 0800 AC 12/19 INH 0844 Ipratropium Dane 2.5 ML Q4P PRN 12/17 1915 DC 12/18 INH 1105 Methylprednisolone 40 MG Q12 12/18 2200 DC 12/18 IV 12/19 0000 2107 Methylprednisolone 40 MG Q8 12/18 0600 DC 12/18 IV 1436 Nicotine 14 MG DAILY 12/17 1822 AC 12/19 TOP 1008 Oseltamivir Phosphate 75 MG BID 12/17 2200 AC 12/19 PO 12/22 1001 1008 Prednisone 40 MG DAILY 12/19 1000 AC 12/19 PO 1008 Assessment/Plan Assessment: Ms. Talbert is a pleasant 76 year old female with PMH COPD not on home O2 and active smoking for greater than 20 years who presents with chief complaint of 2- 3 days of dyspnea, mild cough with slight white sputum production and generalized malaise. 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 Associated symptoms include fever of 100.3. In the ED: Vital signs showed T 99.8, HR 89, RR 18, BP 120/56 and O2 saturation of 82% on room air which increased to 95% on 3L NC. Labs showed a normal CBC ( specifically WBC 6.3), BEP with abnormal Cl of 96, BUN 26 and glucose 107. Lactic acid normal at 0.9. Flu test done in the ED was positive. Patient is admitted to the general medicine floor and the following is the management: 1. Acute hypoxic respiratory failure 2/2 COPD exacerbation * Provide supplemental O2 to keep O2 saturations >92% * OF NOTE, patient's saturation checked while at rest on room air and noted to be 87%. Ambulatory pulse oximetry checked while on room air and patient desaturated to 83%. Patient will require home oxygen. * Continue albuterol/atrovent bronchodilater every 4 hours, TRC nebs ordered * PO prednisone started today at 40 mg PO daily * Repeat CXR done yesterday showed obstructive lung disease, no acute focal process superimposed * Of note, patient has remained afebrile but remains on 3 L NC with saturations in the low 90's * Blood cultures x 2 show NGTD, urine legionella/strep negative, [facility] cancelled due to not enough specimen, will follow rest of blood culture results * Of note, patient will require outpatient follow up with pulmonology service to establish care and provide continued management/PFTs for COPD 2. Influenza * Rapid flu negative at urgent care, positive in our ED * No evidence of fever since admission to the floor * Patient received tamiflu in the ED, will continue 75 mg PO BID tamiflu for a total of 5 days * Supportive management * Will discontinue droplet precautions on discharge 3. Nicotine abuse * Patient was counseled on tobacco cessation * Nicotine patch daily 4. Low Vit D * Evidence of kyphosis on CXR, low vit D level on laboratory analysis * Vit D supplementation daily FULL CODE DVTP: Mechanical & Pharm Regular diet Mild pain pathways Problem List: 1. COPD exacerbation 2. Hypoxia 3. Influenza A Pain Ratin Pain Location: N/A Pain Goal: Remain pain free Pain Plan: Mild pain pathway Tomorrow's Labs & Rationales: None.
--- NOTE | 2016-12-19 07:52 | PN- Student ---
Subjective Subjective: Vital Signs Date Time Temp Pulse Resp B/P Pulse O2 O2 Flow FiO2 Ox Delivery Rate 12/19 0618 98.1 81 20 100/60 90 Nasal 3.0L Cannula 12/18 2313 97.8 84 20 138/58 94 Nasal 3.0L Cannula 12/18 2125 94 Nasal 3.0L Cannula 12/18 1600 Nasal 3.0L Cannula 12/18 1528 99.7 73 22 120/60 96 12/18 1107 Nasal 3.0L Cannula 12/18 08 91 Nasal 3.0L Cannula Intake & Output 12/19 0800 12/19 0000 12/18 1600 Intake Total 630 1050 Output Total Balance 630 1050 Intake, IV 30 250 Intake, Oral 600 800 Current Medications Sig/Duy Start time Last Medication Dose Route Stop Time Status Admin Acetaminophen 650 MG Q6P PRN 12/17 1515 AC 12/18 PO 0450 Albuterol Sulfate 3 ML EVERY 4 HRS/AWAKE 12/19 0800 AC 12/18 INH 2125 Albuterol Sulfate 3 ML Q4H PRN 12/17 1830 DC 12/18 INH 1105 Azithromycin 500 MG DAILY 12/18 1000 AC 12/18 Dextrose/Water 250 ML IV 12/21 1059 1033 Cholecalciferol 400 IU DAILY 12/19 1000 AC PO Enoxaparin Sodium 40 MG DAILY 12/18 1000 AC 12/18 SC 1032 Guaifenesin 600 MG Q12 12/18 1415 AC 12/18 PO 2106 Ipratropium Alma 2.5 ML EVERY 4 HRS/AWAKE 12/19 0800 AC 12/18 INH 2125 Ipratropium [place] 2.5 ML Q4P PRN 12/17 1915 DC 12/18 INH 1105 Methylprednisolone 40 MG Q12 12/18 2200 DC 12/18 IV 12/19 0000 2107 Methylprednisolone 40 MG Q8 12/18 0600 DC 12/18 IV 1436 Nicotine 14 MG DAILY 12/17 1822 AC 12/18 TOP 1032 Oseltamivir Phosphate 75 MG BID 12/17 2200 AC 12/18 PO 12/22 1001 2107 Prednisone 40 MG DAILY 12/19 1000 AC PO Resident Review Statement Resident Statement: discussed with internet marketing intern
--- NOTE | 2016-12-19 08:58 | Discharge Summary ---
Visit Information Visit Dates Admission Date: 12/17/16 Discharge Date: 12/20/16 Hospital Course Course Attending Physician: WINTER LEIVA M.D [facility]: Ms. 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 Ms. Talbert was noted to be in close contact with this child's secretions. Ms. Talbert then noticed that she did not feel well, with lethargy, shortness of breath and cough productive of minimal white fluid. She attempted to schedule an appointment with her PCP but they were not able to fit her into the schedule so she went to an Urgent Care. She had a CXR done at Urgent Care which was suggestive of a right lower lobe pneumonia. She was also noted to drop her oxygen saturations to 82% on room air while ambulating and was therefore sent to the [facility] ED. Of note, patient did have her flu vaccination this year but did not receive a pneumococcal PNA vaccination. Past surgical history was significant for hysterectomy. Social history was significant as mentioned above for smoking 1-2 ppd for >20 years. She denied alcohol or illicit drug use. In the ED: Vital signs showed T 99.8, HR 89, RR 18, BP 120/56 and O2 saturation of 82% on room air which increased to 95% on 3L NC. Labs showed a normal CBC ( specifically WBC 6.3), BEP with abnormal Cl of 96, BUN 26 and glucose 107. Lactic acid normal at 0.9. Flu test done in the ED was positive. Physical examination showed: General Appearance Alert, Oriented X3, Cooperative, Mild Distress Skin No Rashes, No Significant Lesion HEENT Atraumatic, PERRLA, Mucous Membr. moist/pink Neck Supple, No JVD Lymphatic Cervical nl Cardiovascular Regular Rate, Normal S1, Normal S2 Lungs Decreased breath sounds right lung base, wheezing appreciated Abdomen Normal Bowel Sounds, Soft, No Tenderness, No Hepatospenomegaly Neurological Normal Speech, Strength at 5/5 X4 Ext, Normal Tone Extremities No Clubbing, No Cyanosis, 2+ bilateral lower extremity edema Vascular Pulses Symmetrical Patient was admitted to the general medicine floor and the following was the management: 1. Acute hypoxic respiratory failure 2/2 COPD exacerbation: Due to decreased oxygen saturations on ambulation to 82% on room air, patient was admitted to the general medicine floor on 3L NC. She was placed on IV solumdrol 40 mg Q8H with TRC nebs. Blood cultures x 2, urine legionella, strep, and lower respiratory cultures were drawn (all returned as negative). Patient had a repeat CXR done after admission that showed obstructive lung disease, no acute focal process superimposed. Atrovent and proventil were then added to her regimen along with mucinex. IV solumdrol was then tapered daily and patient was transitioned to PO prednsione. She will be discharged with a prednisone taper and she was referred to the sole molding machine operator Dr. 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 Of note, patient was unable to be weaned off of her oxygen, as she desaturated less than 88% on ambulatory pulse ox without oxygen. She was also discharged with new medications for Proair and Atrovent. 2. Influenza: Patient was initially noted to have a negative influenza swab at the urgent care, however the rapid flu done in the emergency room was positive. Patient had one dose of tamiflu in the emergency room and was continued on 75 mg PO BID tamiflu for a total of 5 days. She was discharged with tamiflu as she did not finish 5 days while in the hospital. As noted above, she required oxygen during her stay and was discharged with oxygen as she became hypoxic on ambulation on room air. 3. Nicotine abuse: Patient was counseled on abstaining from nicotine and she requested a nicotine patch while administered daily. She suggests she will try to quit smoking after discharge and was given a script for nicotine patches upon discharge. 4. Low Vitamin D: Evidence of kyphosis on CXR, low vitamin D level on laboratory analysis. Patient was started on vitamin D daily and given a script for this supplement on discharge. 5. Code: FULL 6. DVT Prophylaxis: SC Lovenox Complications: None. Allergies: Coded Allergies: No Known Allergies (12/17/16) Significant Procedures: EXAMINATION: XR CHEST CLINICAL INFORMATION: Cough, productive of sputum. Fever. Shortness of breath. COMPARISON: None. TECHNIQUE: PA and lateral views of the chest were obtained. FINDINGS: The cardiomediastinal silhouette is within normal limits in size. Calcification of the aortic arch is seen. Lungs bilaterally are symmetrically hyperinflated with flattening of the hemidiaphragms and increase in retrosternal airspace, consistent with obstructive lung disease. Slight diffuse thickening of the central airways is seen. No focal consolidation, effusion or pneumothorax is present. There is a mild dorsal kyphosis with mild compression deformity of the T9 vertebral body, likely long-standing with associated vertebral endplate spurring. Diffuse osteopenia is seen. IMPRESSION: 1. Findings are consistent with obstructive lung disease. No acute superimposed focal process is noted. 2. Osteopenia with dorsal kyphosis and mild compression deformity of T9, likely long-standing. Disposition Summary Disposition Principal Diagnosis: Acute hypoxic respiratory failure 2/2 COPD exacerbation Influenza Additional Diagnosis: Nicotine abuse Low Vit D Discharge Disposition: home or self care Discharge Instructions General Discharge Information Code Status: Full Code Patient's Diet: Regular diet. Patient's Activity: Self-limited, with oxygen. Follow-Up Instructions/Appts: Please follow up with Dr. Tang within 7 days of discharge. Please schedule an appointment with Dr. Cole for close management of your COPD. Please discuss need for a formal spirometry examination. Please take all medicaitons as directed. You may take your mucinex as needed for congestion. Medications at Discharge Discharge Medications: Start taking the following new medications: Albuterol Sulfate (Proair Hfa) 90 MCG HFA.AER.AD 2 Puff Inhale through mouth EVERY 4-6 HOURS NEEDED as needed for SHORTNESS OF BREATH Qty = 1 Refills = 3 Comments: Last Taken:12/18/16 Time:11 AM Oseltamivir Phosphate (Tamiflu) 75 MG CAPSULE 1 Capsule ORAL TWICE DAILY Qty = 6 No Refills Comments: Last Taken:12/20/16 Time:9 AM Cholecalciferol (Vitamin D3) (Vitamin D3) 400 UNIT TABLET 1 Tablet ORAL DAILY Qty = 30 Refills = 1 Comments: Last Taken:12/20/16 Time: 9 AM Nicotine (Nicoderm Cq) 14 MG/24 HOUR PATCH.TD24 1 Patch On the skin DAILY Qty = 28 No Refills Comments: Last Taken:12/20/16 Time:9 AM Ipratropium [place] (Atrovent Hfa) 17 MCG/ACTUATION HFA.AER.AD 2 PUFF Inhale through mouth 4 TIMES A DAY Qty = 2 No Refills Comments: Last Taken:NOT GIVEN IN HOSPITAL Time: Prednisone (Prednisone) 10 MG TABLET 0 ORAL See Instructions Qty = 12 No Refills Instructions: 12/21/16-12/22/16 TAKE 3 TABS DAILY 12/23/16-12/24/16 TAKE 2 TABS DAILY 12/25/16-12/26/16 TAKE 1 TAB DAILY THEN STOP Comments: Last Taken:12/20/16 Time:9 AM Copies To: LAUREEN ERICKSON,MShad CRENSHAW; ZHEN ERICKSON,FLORENTINO Attending Review Statement Documenting Attending: WINTER LEIVA M.D Other Findings: I have reviewed the discharge summary.
[2016-12-19] MEDS ORDERED: ATROVENT HFA12.9 GM INH (11:02)
[2016-12-19] MEDS ORDERED: NICODERM CQ1 EAC1 TOP (11:02)
--- NOTE | 2016-12-19 12:20 | Event Note ---
Event Note Event Note: 12/19/16 Event Note: Long discussion held with patient's daughter this AM. She does not feel comfortable with her mother's discharge today and greatly emphasized the wish that her mother be discharged tomorrow. 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 Daughter wishes patient be discharged tomorrow 12/20/16 after one more day of droplet isolation as she is off from work tomorrow and can arrange for Vanessa to have a ride home. She will also be able to keep the children at her house until Vanessa no longer requires Tamiflu.
--- NOTE | 2016-12-19 13:31 | NUR ---
O2 SAT ON ROOM AIR AT REST 87 % O2 SAT ON RA WITH AMBULATION 83 % 02 SAT ON 3 LITERS VIA N/C AT REST 98 % O2 SAT ON 3 LITERS VIA N/C WITH AMBULATION 94 % AWARE OF RESULTS, CONTINUE TO MONITOR
[2016-12-19 13:58] VITALS: BP 140/70
[2016-12-19 22:34] VITALS: BP 140/70
[2016-12-20 06:32] VITALS: BP 140/68
--- NOTE | 2016-12-20 07:20 | PN- Housestaff ---
See Addendum Subjective Follow-up For: COPD exacerbation Influenza Subjective: Patient seen and examined at bedside this AM. She continues to endorse malaise and congestion, but is otherwise asymptomatic. She is aggreeable to discharge with home O2 today. Review of Systems Constitutional: Reports: malaise. Denies: chills, fever. EENTM: Reports: nasal congestion. Denies: blurred vision, visual changes, hearing changes. Cardiovascular: Denies: chest pain, palpitations. Respiratory: Reports: cough, short of breath. Gastrointestinal: Denies: abdominal pain, bloating, constipation, diarrhea. Genitourinary: Denies: dysuria. Musculoskeletal: Denies: back pain. Skin: Denies: change in skin color, change in hair/nails. Neurological/Psychological: Denies: confusion, headache, numbness. Hematologic/Endocrine: Denies: bruising, bleeding. Immunologic/Allergic: Denies: splenectomy. Objective Last 24 Hrs of Vital Signs/I&O Vital Signs Date Time Temp Pulse Resp B/P Pulse O2 O2 Flow FiO2 Ox Delivery Rate 12/20 0820 91 Nasal 1.0L Cannula 12/20 0800 92 Nasal 1.0L Cannula 12/20 0632 97.7 83 20 140/68 90 Nasal 1.0L Cannula 12/20 0000 Nasal 1.0L Cannula 12/19 2234 98.1 87 20 140/70 93 Nasal Cannula 12/19 1815 97 Nasal 3.0L Cannula 12/19 1600 Nasal 3.0L Cannula 12/19 1358 98.2 86 20 140/70 92 Nasal 2.0L Cannula Intake & Output 12/20 1600 12/20 0800 12/20 0000 Intake Total 480 480 Output Total Balance 480 480 Intake, Oral 480 480 Physical Exam General Appearance: Alert, Oriented X3, Cooperative, No Acute Distress Skin: No Rashes, No Significant Lesion HEENT: Atraumatic, PERRLA, Mucous Membr. moist/pink Neck: Supple, No thryomegaly Lymphatic: Cervical nl Cardiovascular: Regular Rate, Normal S1, Normal S2 Lungs: Improved air entry bilaterally with occasional wheeze Abdomen: Normal Bowel Sounds, Soft, No Tenderness, No Hepatospenomegaly, No Masses Neurological: Normal Gait, Normal Speech, Normal Tone Extremities: No Clubbing, No Cyanosis, No Edema Vascular: Pulses Symmetrical Current Medications: Current Medications Sig/Duy Start time Last Medication Dose Route Stop Time Status Admin Acetaminophen 650 MG Q6P PRN 12/17 1515 AC 12/20 PO 0620 Albuterol Sulfate 3 ML EVERY 4 HRS/AWAKE 12/19 0800 AC 12/20 INH 0804 Azithromycin 500 MG DAILY 12/18 1000 AC 12/20 Dextrose/Water 250 ML IV 12/21 1059 0921 Cholecalciferol 400 IU DAILY 12/19 1000 AC 12/20 PO 0922 Enoxaparin Sodium 40 MG DAILY 12/18 1000 AC 12/20 SC 0922 Guaifenesin 600 MG Q12 12/18 1415 AC 12/20 PO 0922 Ipratropium [place] 2.5 ML EVERY 4 HRS/AWAKE 12/19 0800 AC 12/20 INH 0804 Nicotine 14 MG DAILY 12/17 1822 AC 12/20 TOP 0922 Oseltamivir Phosphate 75 MG BID 12/17 2200 AC 12/20 PO 12/22 1001 0922 Patient Medication 1 ED .[facility] 12/19 1341 IN Teaching ED 12/19 1342 Prednisone 40 MG DAILY 12/19 1000 AC 12/20 PO 0922 Orders Radiology Findings: EXAMINATION: XR CHEST CLINICAL INFORMATION: Cough, productive of sputum. Fever. Shortness of breath. COMPARISON: None. TECHNIQUE: PA and lateral views of the chest were obtained. FINDINGS: The cardiomediastinal silhouette is within normal limits in size. Calcification of the aortic arch is seen. Lungs bilaterally are symmetrically hyperinflated with flattening of the hemidiaphragms and increase in retrosternal airspace, consistent with obstructive lung disease. Slight diffuse thickening of the central airways is seen. No focal consolidation, effusion or pneumothorax is present. There is a mild dorsal kyphosis with mild compression deformity of the T9 vertebral body, likely long-standing with associated vertebral endplate spurring. Diffuse osteopenia is seen. IMPRESSION: 1. Findings are consistent with obstructive lung disease. No acute superimposed focal process is noted. 2. Osteopenia with dorsal kyphosis and mild compression deformity of T9, likely long-standing. Assessment/Plan Assessment: Ms. Talbert is a pleasant 76 year old female with PMH COPD not on home O2 and active smoking for greater than 20 years who presents with chief complaint of 2- 3 days of dyspnea, mild cough with slight white sputum production and generalized malaise. 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 Associated symptoms include fever of 100.3. In the ED: Vital signs showed T 99.8, HR 89, RR 18, BP 120/56 and O2 saturation of 82% on room air which increased to 95% on 3L NC. Labs showed a normal CBC ( specifically WBC 6.3), BEP with abnormal Cl of 96, BUN 26 and glucose 107. Lactic acid normal at 0.9. Flu test done in the ED was positive. Patient is admitted to the general medicine floor and the following is the management: 1. Acute hypoxic respiratory failure 2/2 COPD exacerbation * Provide supplemental O2 to keep O2 saturations >92%, currently on 1L NC * OF NOTE, patient's saturation checked while at rest on room air and noted to be 87%. Ambulatory pulse oximetry checked while on room air and patient desaturated to 83%. Patient will require home oxygen. * Continue albuterol/atrovent bronchodilater every 4 hours (given as a prescription for discharge), TRC nebs ordered * PO prednisone to continue today at 40 mg PO daily,c ontinue taper on discharge * Repeat CXR showed obstructive lung disease, no acute focal process superimposed * Of note, patient has remained afebrile but remains on 1 L NC with saturations in the low 90's * Blood cultures x 2 show NGTD, urine legionella/strep negative, LRC cancelled due to not enough specimen * Of note, patient will require outpatient follow up with pulmonology service to establish care and provide continued management/PFTs for COPD 2. Influenza * Rapid flu negative at urgent care, positive in our ED * No evidence of fever since admission to the floor * Patient received tamiflu in the ED, will continue 75 mg PO BID tamiflu for a total of 5 days (today is day #3) * Supportive management * Will discontinue droplet precautions on discharge 3. Nicotine abuse * Patient was counseled on tobacco cessation * Nicotine patch daily 4. Low Vit D * Evidence of kyphosis on CXR, low vit D level on laboratory analysis * Vit D supplementation daily FULL CODE DVTP: [employer] Regular diet Mild pain pathways Problem List: 1. COPD exacerbation 2. Hypoxia 3. Influenza A Pain Ratin Pain Location: n/a Pain Goal: Remain pain free Pain Plan: Mild pain pathway. Tomorrow's Labs & Rationales: Discharge today.
[2016-12-20] MEDS ORDERED: PREDNISONE10 M2 PO ×2 (10:58→11:18)
[2016-12-20] MEDS ORDERED: VITAMIN D3400 UNI1 PO (11:15)
[2016-12-20] MEDS ORDERED: PROAIR HFA8.5 GM INH (11:15)
[2016-12-20] MEDS ORDERED: TAMIFLU75 M1 PO (11:15)
[2016-12-20] MEDS ORDERED: NICODERM CQ1 EAC1 TOP (11:16)
[2016-12-20] MEDS ORDERED: ATROVENT HFA12.9 GM INH (11:17)
== END 2016-12-20 14:24 | DRG 190 ==
LOC: ENRESERVTM → ENRESERVDT → ERH 11:06 → ERHI 13:16 → 2NA 13:16 → ENPENDDIS 13:16 → EDBEDREQ 14:04 → 2NA 19:16
PROVIDERS: Internal Medicine; Physician Assistant Surgical; ADMIT Internal Medicine
DX: J44.0 Chronic obstructive pulmonary disease with (acute) lower respiratory infection (principal); J96.01 Acute respiratory failure with hypoxia; J44.1 Chronic obstructive pulmonary disease with (acute) exacerbation; F17.200 Nicotine dependence, unspecified, uncomplicated; J11.1 Influenza due to unidentified influenza virus with other respiratory manifestations
CPT/HCPCS: 2NAP; 36415; 82436; 87040; 87070; 87449; 87450; 87804; 87804-59; 93005; 93010; 96365; 96375; J0456; J0696; J1650; J2920; J2930; J7060